=== PATIENT | female | born 1940 | race Caucasian/White ===

== ENCOUNTER → 2017-02-13 | Outpatient (CLI) | payer MEDICARE, OTHER ==
[~2017-02-13] MED LIST: ABILIFY10 MG; ATENOLOL25 M1 PO; ATIVAN1 M1 PO; CELEBREX 200MG200 MG PO; FIBER PILL PO; FIBER PO; FUROSEMIDE40 MG PO; IMODIUM2 MG PO; ISORDIL 10MG. T10 MG PO; KLOR-CON M2020 MEQ PO; NEXIUM40 MG PO; NITRO-DUR0.4 MG/HR TD; PROTONIX 40MG T40 MG PO; RANEXA500 M1 PO; SYNTHROID 0.00.05 MG PO; TYLENOL EXTRA500 M1 PO; VIT D PO; VYTORIN 10 MG-41 TAB PO; ZOFRAN4 MG PO; [UNRECOGNIZED DRUG - CODE] PO; [UNRECOGNIZED DRUG - OTHER] PO
[2017-02-13 15:19] LABS: HEMOGLOBIN 12.2 g/dL (12.2-16.2); LYMPH # 2.1 K/mm3 (0.7-4.5); LYMPH % 23.7 % (10-50.0)
[2017-02-13 15:35] LABS: URINE BLOOD NEGATIVE (NEG)
[2017-02-13 16:03] LABS: BUN 14 mg/dL (7-18)
[2017-02-13 16:04] LABS: GFR (ESTIMATED) 43 ML/MIN (59-)
[2017-02-13 16:15] LABS: URINE BILIRUBIN - DIPSTICK 1+ (NEG)
[2017-02-15 09:38] LABS: Vitamin D, 25-Hydroxy 24.5 ng/mL (30.0-100.0)
== END ==
LOC: LAB 14:48
PROVIDERS: Internal Medicine
DX: I95.1 Orthostatic hypotension (principal); I25.118 Atherosclerotic heart disease of native coronary artery with other forms of angina pectoris; E03.9 Hypothyroidism, unspecified; K91.2 Postsurgical malabsorption, not elsewhere classified; E55.9 Vitamin D deficiency, unspecified; R82.90 Unspecified abnormal findings in urine